=== PATIENT | male | born 1935 | race African-American/Black ===

== ENCOUNTER 2020-03-20 04:49 | Inpatient (IN) | payer OTHER ==
[~2020-03-20] VITALS: Ht 188 cm; Wt 72.6 kg
[~2020-03-20 04:49] MED LIST: FINA5TAB11 PO; METO-539 PO; METO100T16 PO; NIFE90TA43 PO; SIMV10TA97 PO
[2020-03-20] MEDS ORDERED: ONDANSETRON HCL 4MG/2ML INJ IV STA (05:17)
[2020-03-20] MEDS ORDERED: MORPHINE SULFATE 4 MG/ML CPJ (NOT FOR IM USE) IV STA (05:17)
[2020-03-20] MEDS ORDERED: NITROGLYCERIN OINT 1GM/INCH UDPKT TD ONE (05:30)
[2020-03-20 05:42] LABS: BASOPHILS % 0.7 % (0.0-2.0); EOSINOPHILS % 2.9 % (0.0-5.0); HEMATOCRIT. 45.7 % (42.0-52.0); HEMOGLOBIN. 15.5 g/dL (14.0-18.0); LYMPHOCYTES % 37.1 % (20.0-50.0); MEAN CORPUSCULAR HEMOGLOBIN 30.3 pg (28.0-32.0); MEAN CORPUSCULAR VOLUME 89.4 fL (80.0-94.0); MEAN PLATELET VOLUME 9.3 fl (7.4-10.4); MONOCYTES % 12.1 % (2.0-8.0); NEUTROPHILS % 47.2 % (40.0-76.0); PLATELET 125 x1000/uL (130-400); RED BLOOD CELL COUNT 5.11 mill/uL (4.7-6.1); RED CELL DISTRIBUTION WIDTH 13.8 % (11.6-14.6)
[2020-03-20 05:53] LABS: CHLORIDE 110 mEq/L (98-107)
[2020-03-20] MEDS ORDERED: IOHEXOL-350 100 ML BOTTLE ONE (06:54)
[2020-03-20] MEDS ORDERED: KETOROLAC 15MG/ML VIAL IV PRN (07:00)
[2020-03-20] MEDS ORDERED: GUAIFENESIN 200MG/10ML SUGAR FREE UDC PO PRN (07:00)
[2020-03-20] MEDS ORDERED: DOCUSATE SODIUM 100MG CAPSULE PO PRN (07:00)
[2020-03-20] MEDS ORDERED: ACETAMINOPHEN 325MG TABLET PO PRN ×2 (07:00)
[2020-03-20] MEDS ORDERED: NA PHOS,M-B/NA PHOS,DI-BA ENEMA 118ML PR PRN (07:00)
[2020-03-20] MEDS ORDERED: ONDANSETRON HCL 4MG/2ML INJ IV PRN (07:00)
[2020-03-20] MEDS ORDERED: CLONIDINE 0.1MG TABLET PO PRN (07:00)
[2020-03-20] MEDS ORDERED: MAGNESIUM/ALUMINUM HYDROXIDE/SIMETHICONE 30ML UDC PO PRN (07:00)
[2020-03-20] MEDS ORDERED: NITROGLYCERIN 0.4MG TABLET SL SL PRN (07:00)
[2020-03-20] MEDS ORDERED: TRAMADOL 50MG TABLET PO PRN (07:00)
[2020-03-20] MEDS ORDERED: IPRATROPIUM/ALBUTEROL 0.5-3(2.5)MG/3ML NEB NEB PRN (07:00)
[2020-03-20 09:00] VITALS: BP 178/93
[2020-03-20] MEDS: ENOXAPARIN 40MG/0.4ML SYR SUBCUT SCH (09:39)
[2020-03-20] MEDS: ASPIRIN 325MG EC TABLET PO SCH (09:40)
[2020-03-20] MEDS: LISINOPRIL 20MG TABLET PO SCH ×2 (09:40→21:35)
[2020-03-20] MEDS: FAMOTIDINE 20MG TABLET PO SCH ×2 (09:40→21:35)
[2020-03-20] MEDS: ZINC SULFATE 220 MG ( 50 ) CAPSULE PO SCH (09:40)
[2020-03-20] MEDS: METOPROLOL TARTRATE 25MG TABLET PO SCH ×2 (09:40→21:35)
[2020-03-20] MEDS: ASCORBIC ACID 500 MG TABLET PO SCH ×2 (09:40→21:35)
[2020-03-20 12:00] VITALS: BP 102/77
[2020-03-20 12:32] LABS: *AMPHETAMINES SCREEN URINE NEGATIVE (NEGATIVE); *BARBITURATES SCREEN URINE NEGATIVE (NEGATIVE); *BENZODIAZEPINES SCREEN URINE NEGATIVE (NEGATIVE); *COCAINE SCREEN URINE NEGATIVE (NEGATIVE); CANNABINOID URINE SCREEN NEGATIVE (NEGATIVE); METHADONE URINE SCREEN NEGATIVE (NEGATIVE); OPIATES URINE SCREEN PRESUMTIVE POSITIVE (NEGATIVE)
[2020-03-20 12:33] LABS: PHENCYCLIDINE URINE SCREEN NEGATIVE (NEGATIVE)
[2020-03-20 15:40] LABS: CREATINE KINASE 66 IU/L (39-308)
[2020-03-20 15:41] LABS: CREATINE KINASE MB FRACTION < 1.0 ng/mL (0.5-3.6)
[2020-03-20 16:00] VITALS: BP 158/80
[2020-03-20] MEDS ORDERED: REGADENOSON 0.4 MG/5 ML IV NR (16:15)
[2020-03-20 20:00] VITALS: BP 147/85
[2020-03-20] MEDS ORDERED: ZOLPIDEM TARTRATE 5MG TABLET PO PRN (20:00)
[2020-03-21] VITALS: BP 181/84
[2020-03-21] MEDS ORDERED: DEXT 5%/0.45% NACL 1000ML 1,000 ML IV SCH
[2020-03-21 00:20] VITALS: BP 162/91
[2020-03-21 00:21] LABS: CREATINE KINASE 71 IU/L (39-308)
[2020-03-21 00:22] LABS: CREATINE KINASE MB FRACTION < 1.0 ng/mL (0.5-3.6)
[2020-03-21 04:00] VITALS: BP 117/60
[2020-03-21 07:16] LABS: HEMATOCRIT 42.9 % (42.0-52.0); HEMOGLOBIN 14.6 g/dL (14.0-18.0); MEAN CORPUSCULAR HEMOGLOBIN 30.6 pg (28.0-32.0); MEAN CORPUSCULAR VOLUME 90.1 fL (80.0-94.0); PLATELET 127 x1000/uL (130-400); RED BLOOD CELL COUNT 4.77 mill/uL (4.7-6.1); RED CELL DISTRIBUTION WIDTH 14.1 % (11.6-14.6)
[2020-03-21 08:00] VITALS: BP 162/79
[2020-03-21 08:13] LABS: CHLORIDE 108 mEq/L (98-107)
[2020-03-21] MEDS ORDERED: HYDROCHLOROTHIAZIDE 25MG TABLET PO SCH (09:00)
[2020-03-21 11:40] LABS: CLARITY URINE CLEAR (CLEAR); COLOR URINE YELLOW (YELLOW); KETONES URINE NEGATIVE (NEGATIVE); LEUKOCYTE ESTERASE URINE NEGATIVE (NEGATIVE); NITRITE URINE NEGATIVE (NEGATIVE); OCCULT BLOOD URINE NEGATIVE (NEGATIVE); PROTEIN URINE NEGATIVE (NEGATIVE); SPECIFIC GRAVITY URINE 1.034 (1.005-1.030); UROBILINOGEN URINE 0.2 E.U./dL (0.2-1.0)
[2020-03-21 12:00] VITALS: BP 115/67
[2020-03-21] MEDS ORDERED: REGADENOSON 0.4 MG/5 ML IV ONE (13:34)
[2020-03-21] MEDS ORDERED: ASPI-1497 MT (14:47)
[2020-03-21] MEDS ORDERED: LISI-604 MT (14:58)
[2020-03-21] MEDS ORDERED: HYDR25TA MT (14:58)
[2020-03-21] MEDS: ASCORBIC ACID 500 MG TABLET PO SCH (15:24)
[2020-03-21] MEDS: FAMOTIDINE 20MG TABLET PO SCH (15:24)
[2020-03-21] MEDS: ZINC SULFATE 220 MG ( 50 ) CAPSULE PO SCH (15:24)
[2020-03-21] MEDS: ASPIRIN 325MG EC TABLET PO SCH (15:24)
[2020-03-21] MEDS: LISINOPRIL 20MG TABLET PO SCH (15:24)
[2020-03-21] MEDS: ENOXAPARIN 40MG/0.4ML SYR SUBCUT SCH (15:25)
[2020-03-21 16:35] VITALS: BP 115/67
== END 2020-03-21 18:00 | disposition home or self-care (01) | DRG 205 ==
LOC: ER 04:49 → 5WST 05:46 → SUPCPDRO 06:48 → ENRESERV 07:29 → 5WST 09:46
PROVIDERS: ADMIT Internal Medicine; ATTEND Internal Medicine
DX: M94.0 Chondrocostal junction syndrome [Tietze] (principal); I50.33 Acute on chronic diastolic (congestive) heart failure; I25.110 Atherosclerotic heart disease of native coronary artery with unstable angina pectoris; I11.0 Hypertensive heart disease with heart failure; E78.00 Pure hypercholesterolemia, unspecified; E78.5 Hyperlipidemia, unspecified; I27.20 Pulmonary hypertension, unspecified; I35.0 Nonrheumatic aortic (valve) stenosis; K80.20 Calculus of gallbladder without cholecystitis without obstruction; N40.0 Benign prostatic hyperplasia without lower urinary tract symptoms; Z79.899 Other long term (current) drug therapy; E04.9 Nontoxic goiter, unspecified
CPT/HCPCS: 36415; 71045; 71275; 78452; 80048; 80053; 80061; 80305; 81003; 82550; 82553; 83036; 83880; 84153; 84443; 84484; 85025; 85027; 85379; 93005; 93017; 93306; 93970; 97162; 99285; A9500; J1650; J2270; J2405; J2785; Q9967; G0103